=== PATIENT | male | born 1970 | race Caucasian/White ===

== ENCOUNTER 2021-06-07 09:30 | Outpatient (RCR) | payer BC, SELFPAY ==
--- NOTE | 2021-05-03 17:01 | PTOPEVAL ---
PHYSICAL THERAPY EVALUATION Thank you for referring Jevon Giordano to [facility] Jevon was evaluated for the dx of left shoulder impingement/pain. The patient is scheduled to be seen for therapy?2 x/week for 4 weeks. Please review, sign, date and return this plan of care CARLOS. I agree with and certify that the following plan of care is medically necessary. Referring Physician Date Attending Provider: Sonja Johnson NP *PT Outpatient Evaluation Start: 05/03/21 10:10 Freq: Status: Active Protocol: Document 05/03/21 10:10 [facility] (Rec: 05/03/21 11:26 [facility] [id number]) Therapy Assessment Status Assessment Status Assessment Status Evaluation Evaluation Information Problem Diagnosis left shoulder impingement/pain Onset 3 months Cause overuse playing baseball Additional Evaluation Detail The patient has played baseball all of his life minus 5 years more recently. The patient works as manager of financial and has been playing ball again for 9 months. The patient reports shoulder pain with raising arm to the side, with weight workouts, swinging a bat, laying on his left side. The patient reports a decrease in pain when not playing ball as much but wants to increase his play time w/o increased shoulder troubles. Subjective Information The patient is left hand Query Text:As Reported By Patient/ dominant Family Pain Assessment Pain Scale Pain Scale Used Numeric (1 - 10) Self Report Pain Assessment Left Shoulder(s) Reported Pain Level 2 Greatest Pain Intensity 6 Pain Aggravating Factors Exercise/Activity Other Pain Aggravating Factors overuse with baseball Pain Score Pain Score 2: Self Report Interventions Used Interventions Used By Clinicians Education,Electrical Stimulation,Exercise,Heat Pain Relief Interventions Used By Inactivity/Rest Patient Upper Extremity Range of Motion General Upper Extremity Range of Motion Gross Upper Extremity Range of Motion left shoulder IR pain and Comments limited motion due to pain with reaching behind back. Right hand reaches to T5, left hand to T11. Upper Extremity Muscle Strength Testing General Upper Extremity Strength Reason Not Measured
--- NOTE | 2021-05-17 10:31 | PCPTNOTE ---
Patient did not show for appointment this date. Patient was called and voice message left with time and date of upcoming appointment.
--- NOTE | 2021-05-23 09:34 | PCPTNOTE ---
Patient called & cancelled scheduled appointment this date due to not feeling well.
--- NOTE | 2021-06-07 16:31 | PTOPEVAL ---
PHYSICAL THERAPY DISCHARGE Thank you for referring Jevon Giordano to [facility].? The patient has completed 7 visits for the dx of left shoulder impingement/pain. Goals are partially met and peaked. [facility]. Please review, sign, date and return this plan of care CARLOS. I agree with and certify that the following plan of care is medically necessary. Referring Physician Date Attending Provider: Sonja Johnson NP *PT Outpatient Discharge Start: 05/03/21 10:10 Freq: Status: Active Protocol: Document 06/07/21 09:36 [facility] (Rec: 06/07/21 10:32 [facility] [id number]) Therapy Assessment Status Assessment Status Assessment Status Discharge Evaluation Information Problem Diagnosis left shoulder impingement/pain Onset 3 months Cause overuse playing baseball Additional Evaluation Detail The patient reports he is comfortable with his HEP and can advance the exercises within his normal workouts w/o a concern. Pt reports feeling stronger in his scap muscles but he still has pain with arm elevation past 80'. The patient agrees that correcting his posture helps control intensity of pain with reaching. The patient plans to call the MD for a follow up since his pain is not to a tolerable point of improvement. Pain Assessment Timing of Pain Assessment Timing of Pain Assessment Assessment Pain Scale Pain Scale Used Numeric (1 - 10) Self Report Pain Assessment Left Shoulder(s) Reported Pain Level 0 Other Pain Description 3 with movement or sidelying sleep Pain Score Pain Score 0: Self Report Interventions Used Interventions Used By Clinicians Education,Exercise Pain Relief Interventions Used By Exercise,Heat,Position Change Patient Upper Extremity Range of Motion General Upper Extremity Range of Motion Gross Upper Extremity Range of Motion improved with IR motion to WNL's Comments and no longer painful Upper Extremity Muscle Strength Testing General Upper Extremity Strength Gross Upper Extremity Strength Comments improved scapular strength and postural control. Pt completes scapular exercises with 3lb weights with full control of scapular position w
== END 2021-06-09 10:31 | disposition home or self-care (01) ==
LOC: ANHPT 09:30
PROVIDERS: PCP Internal Medicine; Visit Provider Nurse Practitioner
DX: M75.40 Impingement syndrome of unspecified shoulder (principal); M76.60 Achilles tendinitis, unspecified leg
CPT/HCPCS: 97014; 97110; 97140; 97162; G0283

== ENCOUNTER 2021-06-27 08:39 | Outpatient (CLI) | payer BC, SELFPAY ==
--- NOTE | ~2021-06-27 | MR_ITS ---
EXAMINATION: MR shoulder LT wo con DATE: 06/27/2021 09:53 INDICATION: Left shoulder pain. TECHNIQUE: Magnetic resonance imaging (MRI) of the left shoulder was performed without intravenous co ntrast. Sequences included axial PD-weighted FS FSE, coronal oblique PD-weighted FS FSE, coronal obli que T2-weighted FS FSE, sagittal PD-weighted FS FSE, and sagittal T1-weighted SE. COMPARISON: None. FINDINGS: Coracoacromial arch: The acromion undersurface is curved in morphology (type II). Small subacromial spur along the lateral margin of the acromion at the insertion of the normal coracoacromial ligament. Acromioclavicular nato nt is normal. Rotator cuff: Mild tendinopathy without discrete tears at the distal aspect of the supraspinatus, infraspinatus and subscapularis tendons. The teres minor tendon is normal. Normal rotator cuff muscle bulk and signal. Biceps tendon, glenoid labrum and glenohumeral cartilage: Long head of the biceps tendon is normal. Small tear at the posterior superior glenoid labrum beginni ng at the 12:00 position extending posteriorly to the 10:30 position. Glenohumeral cartilage is dong l. Fluid: Physiologic amount of fluid in the glenohumeral joint and biceps tendon sheath. No loose osteochondra l bodies. No abnormal fluid signal in the subacromial/subdeltoid bursa to suggest bursitis. Bones: Mild cystic change and surrounding marrow edema along the superior and middle facets of the greater t uberosity likely related to rotator cuff disease. Otherwise normal marrow signal. No fracture or path ologic marrow replacing process. IMPRESSION: 1. Superior, anterior to posterior tear of the glenoid labrum (SLAP tear) at the 12:00-10:30 position of the posterosuperior labrum. 2. Mild subscapularis, supraspinatus and infraspinatus tendinopathy without discrete tear. Reviewed, dictated and finalized at location [facility] IMPRESSION: 1. Superior, anterior to posterior tear of the glenoid labrum (SLAP tear) at th e 12:00-10:30 position of the posterosuperior labrum. 2. Mild subscapularis, supraspinatus and infraspinatus tendinopathy without dis crete tear.
== END 2021-06-27 08:40 | disposition home or self-care (01) ==
PROVIDERS: PCP Internal Medicine; Visit Provider Nurse Practitioner
DX: S43.432A Superior glenoid labrum lesion of left shoulder, initial encounter (principal); X58.XXXA Exposure to other specified factors, initial encounter
CPT/HCPCS: 73221

== ENCOUNTER 2022-02-16 16:58 | Emergency (ER) | payer BC, SELFPAY ==
[2022-02-16 17:11] VITALS: BP 130/83; PULSE 112; RESP 18; TEMP 36.2; O2SAT 100
--- NOTE | 2022-02-16 17:18 | ED.URI ---
HPI - URI/Sore Throat General Chief Complaint: Upper Respiratory Infection Stated Complaint: Chills,Fever Time Seen by Provider: 02/16/22 17:18 History of Present Illness HPI Narrative: Jevon Giordano is a 51 yo male with a PMH of HTN, kidney disease, neurogenic bladder, who comes to express care with intermittent fever up to 102 over the last week where it comes and goes yesterday he was feeling better and went and played golf and had 4 beers but by midnight he was already starting to feel poorly again. He had to leave work today at 1130. He is perspiring and is tachycardic. She has had multiple UTIs over the last few years; and currently is perspiring, not feeling well having chills His talk to the urology group that he goes to and the urine from Saturday is still not back from culture, another culture will try to be obtained here -urology office referred him to come here he play sports and about 10 years ago had a spinal cord injury subclinical that caused atrophy of his bladder and he has had to self cath regularly for the past few years. Denies smoking, recreationally drinks Related Data Home Medications Medication Instructions Recorded Confirmed lisinopril 20 mg tablet 20 mg PO DAILY 01/26/20 02/16/22 Allergies Allergy/AdvReac Type Severity Reaction Status Date / Time No Known Allergies Allergy Verified 02/16/22 17:00 Review of Systems Review of Systems: CONSTITUTIONAL: Has had fever, chills, sweats. EYES: Denies visual changes, redness, discharge. ENT: Denies rhinorrhea, congestion, sore throat, otalgia. CARDIOVASCULAR: Denies chest pain, palpitations, edema. RESPIRATORY: Denies dyspnea, wheezing, cough GASTROINTESTINAL: Denies abdominal pain, nausea, vomiting, diarrhea. GENITOURINARY: Has had dysuria, hematuria, no abnormal discharge SKIN: Denies rash or itching. NEUROLOGIC: Denies numbness, or focal weakness. PSYCHIATRIC: Denies anxiety or depression. [facility] Past Medical History Medical History HTN (hypertension) Kidney disease Neurogenic bladder Surgical History Surgical History History of back surgery Family History Family History Mother Patient's mother is in good health Father Malignant neoplasm of prostate Family history of diabetes mellitus in first degree relative Family history of atrial fibrillation Diabetes mellitus Family history of cardiovascular disease Social History Social History Smoking status: Never smoker Alcohol intake: current Drinks per week: 20 Alcohol use details: 4-6 drinks weekly Substance use: never Gender identity (if verbalized by the patient): Male Comments At time of signature, I agree with nursing past medical, surgical, social and family history. There is no relevant family history pertinent to the presenting complaint. Exam Narrative: GENERAL: This is a well-nourished, well-developed patient, in mild distress. He is perspiring profusely HEAD: normocephalic, atraumatic. EYES: Sclera clear/white. Vision is grossly intact. EARS: External ears normal,. Hearing grossly intact. NOSE: External nose normal without nasal discharge, nares without redness, no rhinorrhea. THROAT: Mucous membranes moist, posterior pharynx NECK: Neck supple, non-tender CARDIOVASCULAR: Tachycardic rate and rhythm without murmurs, gallops, or rubs. RESPIRATORY: Clear to auscultation. Breath sounds equal bilaterally. No wheezes, rales, or rhonchi. GASTROINTESTINAL: Abdomen soft, non-tender, SKIN: warm, intact with no suspicious lesions or rash, good texture and turgor. NEURO: awake, alert, and oriented to person, place and time. There were no obvious focal neurologic abnormalities. Steady gait EXTREMITIES: Normal range of motion. BACK: Nontend
== END 2022-02-16 17:59 | disposition home or self-care (01) ==
PROVIDERS: Emergency Provider Nurse Practitioner; PCP Internal Medicine
DX: N39.0 Urinary tract infection, site not specified (principal); Z20.822 Contact with and (suspected) exposure to COVID-19; I10 Essential (primary) hypertension; N31.9 Neuromuscular dysfunction of bladder, unspecified; N28.9 Disorder of kidney and ureter, unspecified
CPT/HCPCS: 81003; 87086; 87426; 99213; C9803; G0463

== ENCOUNTER 2023-08-20 01:47 | Day surgery (SDC) | payer BC, SELFPAY ==
[2023-07-25 11:29] VITALS: BMI 25.2
--- NOTE | 2023-08-16 11:07 | SUR.PREOP ---
Patient called regarding upcoming procedure. Reviewed preop instructions, appointment times, and procedure prep.
[2023-08-20 10:14] VITALS: BP 118/75; PULSE 67; RESP 20; TEMP 35.9; O2SAT 100; BMI 24.4
[2023-08-20] MEDS: LACTATED RINGERS 1,000 ML 150 ML IV CONT (10:21)
--- NOTE | 2023-08-20 10:38 | PM.HPGS ---
History of Present Illness History of Present Illness Consent: Risks, benefits, and alternatives have been discussed and questions answered. Patient agrees to proceed with procedure. Chief complaint: hx colon polyps, family hx colon ca Narrative: Jevon Giordano is a 53 year old male Referred for colon cancer screening. He has a family history of colon cancer. He himself had 3 polyps removed 4 years ago. Review of Systems Review of Systems: All systems reviewed & are unremarkable except as noted in HPI and below PMFSH Past Medical History Medical History HTN (hypertension) Kidney disease Left rotator cuff tear Neurogenic bladder Surgical History Surgical History History of back surgery Family History Family History Mother Patient's mother is in good health Father Malignant neoplasm of prostate Family history of diabetes mellitus in first degree relative Family history of atrial fibrillation Diabetes mellitus Family history of cardiovascular disease Alzheimer disease in assisted living Social History Social History Smoking status: Never smoker Alcohol intake: current Drinks per week: 10 Alcohol use details: 4-6 drinks weekly Substance use: never Substance use type: does not use Do You Feel Safe in your Home?: Yes Lack of Transportation: No Lack of Food: Never True Current Housing: I Have Housing Concerned About Future Housing: No Difficulty Paying Gas/Electric Bills: No Difficulty Paying for Meds: No Currently Unemployed: No Education: Bachelor's Degree Difficulty w/ Childcare or Family Care: No Living arrangements: with family Occupation/Education: occupation Gender identity (if verbalized by the patient): Male Spiritual care concerns: No Meds Home Medications and Allergies Home Medications Medication Instructions Recorded Confirmed Type lisinopril 20 mg tablet See Rx Instructions .Route 07/04/23 07/30/23 Rx .COMPLEX #90 tabs prednisone 10 mg tablet 10 mg PO BID #20 tabs 07/30/23 07/30/23 Rx Allergies Allergy/AdvReac Type Severity Reaction Status Date / Time No Known Allergies Allergy Verified 07/30/23 13:55 Vital Signs Vital Signs - 24 hr 08/20/23 10:14 Temperature 35.9 C L Pulse Rate 67 Respiratory Rate 20 Blood Pressure 118/75 Pulse Oximetry 100 Oxygen Delivery Room Air Exam Const: General: alert Orientation/consciousness: patient oriented x3 Resp: Auscultation: clear to auscultation bilaterally Cardio: Rhythm: regular rhythm GI: GI Palp: Yes Soft to palpation and No Tenderness to palpation present (GI) Neuro: General: patient oriented x3 Assessment and Plan Assessment and plan (1) Screening for colon cancer: Code(s): Z12.11 - Encounter for screening for malignant neoplasm of colon Status: Acute Plan Colonoscopy with possible biopsy or polypectomy or cautery or injection of substances.
--- NOTE | 2023-08-20 11:15 | WPDANESEPPF ---
Anes - Initial Pre Proc Eval Procedure: Operation Date: 08/20/23 11:30 Proposed Procedures p Colonoscopy - Chuck Pitt MD Date/Time: 08/20/23 11:15 Surgeon: Chuck Pitt MD Pre Op Diagnosis: hx colon polyps, family hx colon ca Patient Data Age: 53 Gender: M Height: 1.8 m Weight: 79.5 kg Last Vital Signs Temp 96.7 F L 08/20/23 10:14 Pulse 67 08/20/23 10:14 Resp 20 08/20/23 10:14 BP 118/75 08/20/23 10:14 Pulse Ox 100 08/20/23 10:14 O2 Del Method Room Air 08/20/23 10:14 Allergies Allergy/AdvReac Type Severity Reaction Status Date / Time No Known Allergies Allergy Verified 07/30/23 13:55 Home Medications Medication Instructions Recorded Confirmed Type lisinopril 20 mg tablet See Rx Instructions .Route 07/04/23 07/30/23 Rx .COMPLEX #90 tabs prednisone 10 mg tablet 10 mg PO BID #20 tabs 07/30/23 07/30/23 Rx Patient hx anesthesia problems: none Family hx anesthesia problems: none Results Review: All pre-operative results and documents have been reviewed as part of the pre-operative evaluation. [facility] Past Medical History Medical History HTN (hypertension) Kidney disease Left rotator cuff tear Neurogenic bladder Surgical History Surgical History History of back surgery Family History Family History Mother Patient's mother is in good health Father Malignant neoplasm of prostate Family history of diabetes mellitus in first degree relative Family history of atrial fibrillation Diabetes mellitus Family history of cardiovascular disease Alzheimer disease in assisted living Social History Social History Smoking status: Never smoker Alcohol intake: current Drinks per week: 10 Alcohol use details: 4-6 drinks weekly Substance use: never Substance use type: does not use Do You Feel Safe in your Home?: Yes Lack of Transportation: No Lack of Food: Never True Current Housing: I Have Housing Concerned About Future Housing: No Difficulty Paying Gas/Electric Bills: No Difficulty Paying for Meds: No Currently Unemployed: No Education: Bachelor's Degree Difficulty w/ Childcare or Family Care: No Living arrangements: with family Occupation/Education: occupation Gender identity (if verbalized by the patient): Male Spiritual care concerns: No Anes - Eval Final PreProcedure Day of Procedure 08/20/23 11:15 Patient weight: normal Heart: regular rate and rhythm Lungs: clear to auscultation Airway: Mallampati scale class II Neurological: alert and oriented Last oral intake: >/= 8 hours ASA classification: III Emergent: no Anesthetic plan: proceed Anesthesia type and monitoring: general GIVS and standard monitoring Results Review: All pre-operative results and documents have been reviewed as part of the pre-operative evaluation. Informed Consent: The patient's anesthetic plan and its attendant risks and benefits were discussed with the patient/family/POA. Questions were solicited and answers provided to the satisfaction of the patient/family/POA.
[2023-08-20 11:35] VITALS: BP 96/60; PULSE 62; RESP 20; O2SAT 99
[2023-08-20 11:45] VITALS: BP 104/78; PULSE 55; RESP 20; O2SAT 99
[2023-08-20 11:55] VITALS: BP 117/75; PULSE 56; RESP 21; O2SAT 100
== END 2023-08-20 12:06 | disposition home or self-care (01) ==
PROVIDERS: PCP Internal Medicine; Visit Provider Internal Medicine Gastroenterology
PROC: 0DJD8ZZ Inspection of Lower Intestinal Tract, Via Natural or Artificial Opening Endoscopic (ICD-10-PCS; CPT 45378; principal; 2023-08-20 11:30)
DX: Z12.11 Encounter for screening for malignant neoplasm of colon (principal); D12.5 Benign neoplasm of sigmoid colon; K64.8 Other hemorrhoids; Z80.0 Family history of malignant neoplasm of digestive organs; I10 Essential (primary) hypertension
CPT/HCPCS: 45380; 88305; J2704; J7120